=== PATIENT | male | born 1970 | race Caucasian/White ===

== ENCOUNTER 2025-05-28 06:03 | Day surgery (SDC) | payer OTHER ==
[2025-05-21 08:22] VITALS: BMI 20.7
[2025-05-28] MEDS ORDERED: PROPOFOL 40 ML ONE (07:30)
== END 2025-05-28 08:50 | disposition home or self-care (01) ==
LOC: CSHSDC 06:03
PROVIDERS: ATTEND Surgery
PROC: 0DJD8ZZ Inspection of Lower Intestinal Tract, Via Natural or Artificial Opening Endoscopic (ICD-10-PCS; principal; 2025-05-28)
DX: Z12.11 Encounter for screening for malignant neoplasm of colon (principal); I10 Essential (primary) hypertension; F17.200 Nicotine dependence, unspecified, uncomplicated; Z86.0101 Personal history of adenomatous and serrated colon polyps
CPT/HCPCS: J2250; J2704